=== PATIENT | male | born 1950 | race Caucasian/White ===

== ENCOUNTER 2019-12-04 12:45 | Emergency (ER) | payer BC ==
[~2019-12-04] VITALS: Ht 177.8 cm; Wt 86.4 kg
[~2019-12-04 12:45] MED LIST: BENADRYL25 M2 PO; BENADRYL25 MG PO; FLOVENT DI50 MCG/Act IH; GABAPENTIN300 M1 PO; LISINOPRIL20 MG PO; MOTRIN 200200 MG/TAB PO; NORCO 325 MG-51 TAB PO; NORMODYNE100 MG PO; OMEGA 31000 MG PO; OMEPRAZOLE20 MG PO; QVAR0.04 MG/AC IH; THEO-24 20200 MG/CAP PO; THEO-24100 MG PO; TRANDATE 100MG100 MG PO; TYLENOL 500MG500 MG PO; VALIUM 5MG T5 MG/TAB PO; VENTOLIN0.09 MG IH; VITAMIN D1000 IU PO; XOPENEX 0.0.63 MG/3 IH; ZANTAC 150MG T150 MG PO; ZANTAC 300300 MG PO; ZOCOR40 MG PO; ZOFRAN 4MG T4 MG/TAB PO
[2019-12-04 13:07] VITALS: BP 129/83
[2019-12-04] MEDS ORDERED: TOPROL XL 50MG50 MG PO (13:38)
[2019-12-04] MEDS ORDERED: MAXALT10 MG (13:38)
[2019-12-04] MEDS ORDERED: LIPITOR 40MG TA40 MG PO (13:38)
[2019-12-04] MEDS ORDERED: QVAR REDIHALE10.6 GM IH (13:39)
[2019-12-04 15:09] LABS: BASO % 0.3 % (0.0-2.0); EOS % 0.6 % (0-4.0); GRAN # 4.8 (1.4-6.5); GRAN % 67.3 % (42.2-75.2); HEMATOCRIT 49.2 % (42.0-52.0); HEMOGLOBIN 17.2 g/dl (13.5-18.0); LYMPH # 1.7 (1.2-3.4); LYMPH % 23.1 % (20.0-51.0); MEAN CELL VOLUME 89 fl (80.0-100.0); MEAN CORPUSCULAR HEMOGLOBIN 31 pg (27.0-31.0); MEAN CORPUSCULAR HGB CONC 35 g/dl (33.0-37.0); MEAN PLATELET VOLUME 8.9 fl (7.4-10.4); MONO # 0.6 (0.1-0.6); MONO % 8.1 % (1.7-9.3); PLATELET COUNT 227 K/mm3 (130-400); RED BLOOD COUNT 5.54 M/mm3 (4.20-5.60); REDCELL DISTRIBUTION WIDTH-CV 12.3 % (11.5-14.5)
[2019-12-04 15:24] LABS: ALANINE AMINOTRANSFERASE 31 U/L (21-72); ALBUMIN 4.9 gm/dL (3.5-5.0); ALKALINE PHOSPHATASE 67 U/L (50-136); ANION GAP 11 mmol/L (7-16); AST,SGOT 33 U/L (15-37); BILIRUBIN,TOTAL 1.2 mg/dL (0.0-1.0); BLOOD UREA NITROGEN 17 mg/dL (9-20); CALCIUM 9.4 mg/dL (8.4-10.2); CARBON DIOXIDE 26 mmol/L (22-30); CHLORIDE 99 mmol/L (98-107); CREATININE, serum 1.04 (0.66-1.25); GLUCOSE 102 mg/dL (74-106); POTASSIUM 4.3 mmol/L (3.4-5.0); SODIUM 137 mmol/L (137-145); TOTAL PROTEIN 8.1 gm/dL (6.4-8.2)
[2019-12-04 15:30] LABS: C-REACTIVE PROTEIN < 0.5 mg/dL (0.0-0.9)
[2019-12-04 16:16] LABS: COLLECTION METHOD CLEAN CATCH
[2019-12-04 16:21] LABS: MUCOUS Present /lpf; PH 5 (5-8); SQUAMOUS EPITHELIAL None Seen /hpf; URINE APPEARANCE Clear; URINE BACTERIA None Seen /hpf; URINE BILIRUBIN Negative (NEGATIVE); URINE BLOOD Negative (NEGATIVE); URINE COLOR Yellow; URINE GLUCOSE Negative (NEGATIVE); URINE KETONE Negative (NEGATIVE); URINE LEUKOCYTE ESTERASE Negative (NEGATIVE); URINE NITRATE Negative (NEGATIVE); URINE PROTEIN(semi-quant) Negative (NEGATIVE); URINE RBC 0-2 /hpf; URINE UROBILINOGEN Negative (NEGATIVE)
[2019-12-04] MEDS ORDERED: NORCO 325 MG-51 TAB PO (16:49)
[2019-12-04] MEDS ORDERED: FLEXERIL 1010 MG/TAB PO (16:49)
[2019-12-04 16:50] VITALS: PULSE 75; TEMP 98.2
== END 2019-12-04 17:00 | disposition home or self-care (01) ==
LOC: COL.ER 12:45
PROVIDERS: Emergency Medicine
DX: M54.16 Radiculopathy, lumbar region (principal)
CPT/HCPCS: J1885; J2360

== ENCOUNTER 2023-08-03 09:30 | Outpatient (RCR) | payer BC ==
[~2023-08-03 09:30] MED LIST changes: +CRESTOR20 MG PO; +FLEXERIL 1010 MG/TAB PO; +LIPITOR 40MG TA40 MG PO; +MAXALT10 MG PO; +PEPCID 20MG TAB20 MG PO; +QVAR REDIHALE10.6 GM IH; +TOPROL XL 50MG50 MG PO; +ZETIA 10MG TAB10 MG PO
== END 2023-08-05 | disposition home or self-care (01) ==
LOC: PT.GENESIS
DX: M51.17 Intervertebral disc disorders with radiculopathy, lumbosacral region (principal); M48.061 Spinal stenosis, lumbar region without neurogenic claudication; G58.8 Other specified mononeuropathies

== ENCOUNTER 2023-10-18 08:00 | Outpatient (RCR) | payer BC | END 2023-11-05 | disposition home or self-care (01) | LOC: PT.GENESIS | DX: M51.17 Intervertebral disc disorders with radiculopathy, lumbosacral region (principal); M48.061 Spinal stenosis, lumbar region without neurogenic claudication; G58.8 Other specified mononeuropathies ==

== ENCOUNTER 2023-12-05 08:30 | Outpatient (RCR) | payer BC | END 2023-12-06 | disposition home or self-care (01) | LOC: PT.GENESIS | DX: M51.17 Intervertebral disc disorders with radiculopathy, lumbosacral region (principal); M48.061 Spinal stenosis, lumbar region without neurogenic claudication; G58.8 Other specified mononeuropathies ==

== ENCOUNTER → 2024-01-04 | Outpatient (RCR) | payer BC | END | disposition home or self-care (01) | LOC: PT.GENESIS | DX: M51.17 Intervertebral disc disorders with radiculopathy, lumbosacral region (principal); M48.061 Spinal stenosis, lumbar region without neurogenic claudication ==